=== PATIENT | male | born 1955 | race Asian ===

== ENCOUNTER 2018-05-15 18:54 | Emergency (ER) | payer OTHER ==
[~2018-05-15] VITALS: Ht 170.2 cm; Wt 83.9 kg
[2018-05-15 19:01] VITALS: BP_SYST 145
[2018-05-15] MEDS ORDERED: KETOROLAC TROMETHAMINE 60 MG/2 ML VIAL IM ONE (19:30)
[2018-05-15] MEDS ORDERED: BACITRACIN 1 GM OINT TP ONE (21:00)
[2018-05-15 21:25] VITALS: BP_SYST 138
== END 2018-05-15 21:25 | disposition home or self-care (01) ==
LOC: SED 18:54
DX: T25.112A Burn of first degree of left ankle, initial encounter (principal); I10 Essential (primary) hypertension; X11.8XXA Contact with other hot tap-water, initial encounter; Y93.89 Activity, other specified; Y92.89 Other specified places as the place of occurrence of the external cause; Y99.8 Other external cause status
CPT/HCPCS: 16000; 96372; 99283; J1885